=== PATIENT | male | born 1950 | race African-American/Black ===

== ENCOUNTER 2017-02-14 20:29 | Emergency (ER) | payer OTHER, MEDICAID ==
[~2017-02-14] VITALS: Ht 185.4 cm; Wt 103.0 kg
[2017-02-15] MEDS ORDERED: ACETAMINOPHEN 325MG TABLET PO ONE (03:45)
[2017-02-15 05:58] VITALS: BP 127/76
== END 2017-02-15 06:00 | disposition home or self-care (01) ==
LOC: ER 21:46
DX: G44.309 Post-traumatic headache, unspecified, not intractable (principal)
CPT/HCPCS: 70450; 99284

== ENCOUNTER 2019-11-23 20:33 | Inpatient (IN) | payer OTHER, MEDICAID ==
[~2019-11-23] VITALS: Ht 185.4 cm; Wt 98.7 kg
[2019-11-24] MEDS ORDERED: ASPIRIN 81MG TABLET PO ONE
[2019-11-24] MEDS ORDERED: NITROGLYCERIN OINT 1GM/INCH UDPKT TD ONE
[2019-11-24 00:50] LABS: BASOPHILS % 0.4 % (0.0-2.0); EOSINOPHILS % 0.5 % (0.0-5.0); HEMATOCRIT. 39.9 % (42.0-52.0); LYMPHOCYTES % 14.3 % (20.0-50.0); MEAN CORPUSCULAR HEMOGLOBIN 28.3 pg (28.0-32.0); MEAN CORPUSCULAR VOLUME 87.2 fL (80.0-94.0); MEAN PLATELET VOLUME 7.4 fl (7.4-10.4); MONOCYTES % 5.7 % (2.0-8.0); NEUTROPHILS % 79.1 % (40.0-76.0); PLATELET 279 x1000/uL (130-400); RED BLOOD CELL COUNT 4.58 mill/uL (4.7-6.1); RED CELL DISTRIBUTION WIDTH 12.1 % (11.6-14.6)
[2019-11-24] MEDS ORDERED: KETOROLAC 30MG/ML VIAL IV STA (00:55)
[2019-11-24] MEDS ORDERED: SODIUM CHLORIDE 0.9% 1,000 ML IV ONE (00:55)
[2019-11-24 01:01] LABS: CHLORIDE 103 mEq/L (98-107)
[2019-11-24] MEDS ORDERED: IOHEXOL-300 100 ML BOTTLE ONE ×2 (06:16→19:06)
[2019-11-24] MEDS ORDERED: MORPHINE SULFATE 4 MG/ML CPJ (NOT FOR IM USE) IV ONE (08:45)
[2019-11-24 09:07] LABS: BASOPHILS % 0.4 % (0.0-2.0); EOSINOPHILS % 0.6 % (0.0-5.0); HEMATOCRIT. 37.6 % (42.0-52.0); HEMOGLOBIN. 12.4 g/dL (14.0-18.0); LYMPHOCYTES % 12.3 % (20.0-50.0); MEAN CORPUSCULAR HEMOGLOBIN 28.9 pg (28.0-32.0); MEAN CORPUSCULAR VOLUME 87.7 fL (80.0-94.0); MEAN PLATELET VOLUME 7.3 fl (7.4-10.4); MONOCYTES % 6.8 % (2.0-8.0); NEUTROPHILS % 79.9 % (40.0-76.0); PLATELET 235 x1000/uL (130-400); RED BLOOD CELL COUNT 4.29 mill/uL (4.7-6.1); RED CELL DISTRIBUTION WIDTH 12.4 % (11.6-14.6)
[2019-11-24] MEDS ORDERED: REGADENOSON 0.4 MG/5 ML IV ONE (11:00)
[2019-11-24 13:50] VITALS: BP 124/73
[2019-11-24] MEDS ORDERED: DOCUSATE SODIUM 100MG CAPSULE PO PRN (14:45)
[2019-11-24] MEDS ORDERED: SENNOSIDES/DOCUSATE SOD 8.6/50MG TABLET PO PRN (14:45)
[2019-11-24] MEDS ORDERED: ACETAMINOPHEN 325MG TABLET PO PRN (14:45)
[2019-11-24] MEDS ORDERED: TRAZODONE HCL 50MG TABLET PO PRN (14:45)
[2019-11-24] MEDS ORDERED: BISACODYL 10MG SUPP PR PRN (14:45)
[2019-11-24] MEDS ORDERED: MAGNESIUM HYDROXIDE 400MG/5ML 30ML UDC PO PRN (14:45)
[2019-11-24] MEDS ORDERED: ONDANSETRON HCL 4MG/2ML INJ IV PRN (14:45)
[2019-11-24] MEDS ORDERED: NITROGLYCERIN 0.4MG TABLET SL SL PRN (14:45)
[2019-11-24] MEDS ORDERED: TAMS-11 MT (14:47)
[2019-11-24 16:00] VITALS: BP 130/74
[2019-11-24] MEDS: TAMSULOSIN HCL 0.4MG SR CAPSULE PO SCH (16:13)
[2019-11-24] MEDS: LEVOFLOXACIN 500MG TABLET PO SCH (16:13)
[2019-11-24] MEDS: KETOROLAC 30MG/ML VIAL IV PRN (16:14)
[2019-11-24] MEDS ORDERED: DIATR MEGLU/DIATRIZOATE SOLN 30ML PO NR (16:30)
[2019-11-24 20:00] VITALS: BP 161/94
[2019-11-24] MEDS: METRONIDAZOLE 500MG TABLET PO SCH (21:57)
[2019-11-24] MEDS: ENOXAPARIN 30MG/0.3ML SYR SUBCUT SCH (22:04)
[2019-11-25 00:51] VITALS: BP 114/66
[2019-11-25 04:00] VITALS: BP 124/78
[2019-11-25] MEDS: METRONIDAZOLE 500MG TABLET PO SCH ×3 (05:13→21:06)
[2019-11-25 06:11] LABS: BASOPHILS % 0.3 % (0.0-2.0); CHLORIDE 106 mEq/L (98-107); EOSINOPHILS % 2.2 % (0.0-5.0); HEMOGLOBIN. 12.3 g/dL (14.0-18.0); LYMPHOCYTES % 21.1 % (20.0-50.0); MEAN CORPUSCULAR VOLUME 87.5 fL (80.0-94.0); MEAN PLATELET VOLUME 7.6 fl (7.4-10.4); MONOCYTES % 6.3 % (2.0-8.0); NEUTROPHILS % 70.1 % (40.0-76.0); PLATELET 253 x1000/uL (130-400); RED BLOOD CELL COUNT 4.23 mill/uL (4.7-6.1); RED CELL DISTRIBUTION WIDTH 12.3 % (11.6-14.6)
[2019-11-25 06:20] LABS: LDL CHOLESTEROL 73 mg/dL (5-100)
[2019-11-25 06:22] LABS: HDL CHOLESTEROL 51 mg/dL (40-59)
[2019-11-25 08:00] VITALS: BP 121/70
[2019-11-25] MEDS: TAMSULOSIN HCL 0.4MG SR CAPSULE PO SCH (09:31)
[2019-11-25] MEDS: AMLODIPINE 5MG TABLET PO SCH (09:31)
[2019-11-25] MEDS: ASPIRIN 81MG EC TABLET PO SCH (09:31)
[2019-11-25] MEDS: ENOXAPARIN 30MG/0.3ML SYR SUBCUT SCH (09:31)
[2019-11-25] MEDS: LEVOFLOXACIN 500MG TABLET PO SCH (10:00)
[2019-11-25 12:00] VITALS: BP 122/78
[2019-11-25 16:00] VITALS: BP 120/74
[2019-11-25 20:00] VITALS: BP 136/84
[2019-11-25] MEDS: KETOROLAC 30MG/ML VIAL IV PRN (20:06)
[2019-11-26] VITALS: BP 135/84
[2019-11-26 04:00] VITALS: BP 114/68
[2019-11-26] MEDS: METRONIDAZOLE 500MG TABLET PO SCH ×2 (05:59→14:15)
[2019-11-26 07:24] LABS: BASOPHILS % 0.4 % (0.0-2.0); EOSINOPHILS % 3.1 % (0.0-5.0); HEMOGLOBIN. 12.1 g/dL (14.0-18.0); LYMPHOCYTES % 25.9 % (20.0-50.0); MEAN CORPUSCULAR HEMOGLOBIN 28.4 pg (28.0-32.0); MEAN CORPUSCULAR VOLUME 87.2 fL (80.0-94.0); MEAN PLATELET VOLUME 7.6 fl (7.4-10.4); MONOCYTES % 6.7 % (2.0-8.0); NEUTROPHILS % 63.9 % (40.0-76.0); PLATELET 261 x1000/uL (130-400); RED BLOOD CELL COUNT 4.24 mill/uL (4.7-6.1); RED CELL DISTRIBUTION WIDTH 12.1 % (11.6-14.6)
[2019-11-26 07:55] LABS: CHLORIDE 106 mEq/L (98-107)
[2019-11-26 08:00] VITALS: BP 132/74
[2019-11-26] MEDS ORDERED: ENOXAPARIN 40MG/0.4ML SYR SUBCUT SCH (09:00)
[2019-11-26] MEDS: ASPIRIN 81MG EC TABLET PO SCH (09:39)
[2019-11-26] MEDS: TAMSULOSIN HCL 0.4MG SR CAPSULE PO SCH (09:40)
[2019-11-26] MEDS: AMLODIPINE 5MG TABLET PO SCH (09:40)
[2019-11-26] MEDS ORDERED: REGADENOSON 0.4 MG/5 ML IV ONE (10:57)
[2019-11-26 12:00] VITALS: BP 151/94
[2019-11-26] MEDS: LEVOFLOXACIN 500MG TABLET PO SCH (12:06)
[2019-11-26] MEDS ORDERED: LEVO500T2 PO (14:20)
[2019-11-26] MEDS ORDERED: NITR0.4T49 SL (14:20)
[2019-11-26] MEDS ORDERED: IBUP-1653 MT (14:20)
[2019-11-26] MEDS ORDERED: MOM PO (14:20)
[2019-11-26] MEDS ORDERED: SENN-3 PO (14:20)
[2019-11-26] MEDS ORDERED: METR-167 PO (14:20)
[2019-11-26 14:30] VITALS: BP 151/92
== END 2019-11-26 15:10 | disposition home or self-care (01) | DRG 303 ==
LOC: ER 20:33 → EDBD 20:33 → 5WST 11-24 03:00 → CANRESERV 11-24 08:47 → ENRESERV 11-24 08:47 → CANRESERV 11-24 11:21 → ENRESERV 11-24 12:26
PROVIDERS: ADMIT Internal Medicine; ATTEND Internal Medicine
DX: I25.10 Atherosclerotic heart disease of native coronary artery without angina pectoris (principal); E87.1 Hypo-osmolality and hyponatremia; Q44.6 Cystic disease of liver; J98.11 Atelectasis; K52.9 Noninfective gastroenteritis and colitis, unspecified; N40.0 Benign prostatic hyperplasia without lower urinary tract symptoms; D18.03 Hemangioma of intra-abdominal structures; I11.9 Hypertensive heart disease without heart failure; E88.09 Other disorders of plasma-protein metabolism, not elsewhere classified; K76.89 Other specified diseases of liver; N28.1 Cyst of kidney, acquired; R16.0 Hepatomegaly, not elsewhere classified; K21.9 Gastro-esophageal reflux disease without esophagitis; Z60.2 Problems related to living alone; D17.79 Benign lipomatous neoplasm of other sites; D50.9 Iron deficiency anemia, unspecified; Z79.899 Other long term (current) drug therapy; Z82.49 Family history of ischemic heart disease and other diseases of the circulatory system
CPT/HCPCS: 36415; 71045; 74177; 76705; 78452; 80053; 80061; 82270; 82728; 83036; 83540; 83550; 83605; 83735; 84484; 85025; 93005; 93017; 93306; 96374; 99285; A9500; J1650; J1885; J2270; J2785; J7030; Q9963; Q9967